=== PATIENT | male | born 1945 | race Two or more races ===

== ENCOUNTER → 2016-09-10 | Outpatient (CLI) | payer MEDICARE, OTHER ==
[2016-09-12 12:41] LABS: PSA % FREE 59.3 % (.); PSA FREE 3.56 ng/mL
== END ==
LOC: LAB 08:38
PROVIDERS: ATTEND Urology
DX: R97.20 Elevated prostate specific antigen [PSA] (principal)
CPT/HCPCS: 36415; 84154

== ENCOUNTER → 2016-10-20 | Outpatient (CLI) | payer MEDICARE, OTHER ==
--- NOTE | 2016-10-20 14:06 | RADIOLOGY REPORT (SQ) ---
EXAM DESCRIPTION: ANKLE RIGHT COMPLETE COMPLETED DATE/TIME: 10/20/2016 1:53 pm REASON FOR STUDY: PAIN IN R ANKLE AND JOINTS OF R FOOT COMPARISON: Left ankle films 01/12/2014 NUMBER OF VIEWS: Three views. TECHNIQUE: AP, lateral, and oblique radiographic images acquired of the right ankle. LIMITATIONS: None. FINDINGS: MINERALIZATION: Normal. BONES: No acute fracture. In the distal right fibular diaphysis, a well-circumscribed benign-appearing cortical lucency is pres ent, 9 x 3 mm in size. This may represent a small non ossifying fibroma and is of doubtful clinical significance. There is mild bony spurring along the distal tip of the medial and lateral malleolar I. tiny plantar calcaneal spur. JOINTS: No ankle joint effusion. SOFT TISSUES: No soft tissue swelling. No foreign body. OTHER: No other significant finding. IMPRESSION: No acute fracture or malalignment. 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
== END ==
LOC: RAD 13:17
PROVIDERS: ATTEND Internal Medicine
DX: M25.571 Pain in right ankle and joints of right foot (principal)

== ENCOUNTER → 2017-04-02 | Outpatient (CLI) | payer MEDICARE, OTHER ==
[2017-04-04 06:38] LABS: PROSTATE SPECIFIC ANTIGEN 7.2 ng/mL (0.0-4.0); PSA % FREE 52.8 % (.); PSA FREE 3.8 ng/mL
== END ==
LOC: LAB 09:38
PROVIDERS: ATTEND Urology
DX: R97.20 Elevated prostate specific antigen [PSA] (principal)
CPT/HCPCS: 36415; 84154

== ENCOUNTER → 2017-10-07 | Outpatient (CLI) | payer MEDICARE, OTHER ==
[2017-10-08 09:12] LABS: PROSTATE SPECIFIC ANTIGEN 8.6 ng/mL (0.0-4.0); PSA % FREE 48.8 % (.); PSA FREE 4.2 ng/mL
== END ==
LOC: LAB 08:30
PROVIDERS: ATTEND Urology
DX: R97.20 Elevated prostate specific antigen [PSA] (principal)
CPT/HCPCS: 36415; 84154

== ENCOUNTER → 2019-01-31 | Outpatient (CLI) | payer MEDICARE, OTHER ==
--- NOTE | 2019-01-31 16:41 | RADIOLOGY REPORT (SQ) ---
EXAM DESCRIPTION: VENOUS UNILATERAL LOWER COMPLETED DATE/TIME: 01/31/2019 4:33 pm REASON FOR STUDY: RLE SWELLING R22.41 LOCALIZED SWELLING, MASS AND LUMP, RIGHT LOWER LIMB COMPARISON: None. TECHNIQUE: Dynamic and static kaplan scale and color images acquired of the right leg venous system. S elected spectral images acquired with additional compression and augmentation maneuvers. The contrala teral common femoral vein and saphenofemoral junction were also imaged. Images stored on PACS. LIMITATIONS: None. FINDINGS: COMMON FEMORAL: Normal phasicity, compression and augmentation. No visualized echogenic ma terial on kaplan scale. No defects on color images. FEMORAL: Normal compression and augmentation. No visualized echogenic material on kaplan scale. No defe cts on color images. POPLITEAL: Normal compression, augmentation. No visualized echogenic material on kaplan scale. No defec ts on color images. CALF VESSELS: Normal compression, augmentation. No visualized echogenic material on kaplan scale. No de fects on color images. GSV and SSV: Normal compression, augmentation. No visualized echogenic material on kaplan scale. No def ects on color images. ANY DEEP VENOUS INSUFFICIENCY: Limited evaluation due to body habitus ANY EVIDENCE OF POPLITEAL CYST: No. OTHER: No other finding. CONTRALATERAL COMMON FEMORAL VEIN AND SAPHENOFEMORAL JUNCTION: Normal phasicity, compression and augmentation. No visualized echogenic material on kaplan scale. No de fects on color images. IMPRESSION: NO EVIDENCE OF DVT OR SVT IN THE RIGHT LEG. TECHNICAL DOCUMENTATION: JOB ID: [id number] [employer]- All Rights Reserved Reading location - IP/workstation name: [email or web address]
== END ==
LOC: SP 15:12
PROVIDERS: ATTEND Internal Medicine
DX: R22.41 Localized swelling, mass and lump, right lower limb (principal)
CPT/HCPCS: 93971